=== PATIENT | male | born 1975 | race Caucasian/White ===

== ENCOUNTER 2021-10-20 10:10 | Outpatient (CLI) | payer OTHER | END 2021-10-20 15:00 | disposition home or self-care (01) | LOC: LAB 10:10 | PROVIDERS: ATTEND Emergency Medicine Pediatric Emergency Medicine | DX: U07.1 COVID-19 (principal) ==

== ENCOUNTER 2021-11-09 15:11 | Outpatient (CLI) | payer OTHER | END 2021-11-09 18:00 | disposition home or self-care (01) | LOC: LAB 15:11 | DX: Z03.818 Encounter for observation for suspected exposure to other biological agents ruled out (principal) ==